=== PATIENT | male | born 2005 | race Caucasian/White ===

== ENCOUNTER 2024-09-29 17:15 | Emergency (ER) | payer SELFPAY ==
[2024-09-29 17:17] VITALS: BMI 23.7
[2024-09-29 18:16] VITALS: BP 123/80; PULSE 82; RESP 16; TEMP 37.2; O2SAT 99
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
[2024-09-29 23:22] VITALS: BP 148/93; PULSE 78; RESP 17; TEMP 36.9; O2SAT 97
== END 2024-09-30 00:15 | disposition home or self-care (01) ==
PROVIDERS: Emergency Provider Emergency Medicine
DX: S20.229A Contusion of unspecified back wall of thorax, initial encounter (principal); W18.2XXA Fall in (into) shower or empty bathtub, initial encounter; Y93.E1 Activity, personal bathing and showering
CPT/HCPCS: 72128; 72131; 99284

== ENCOUNTER 2024-12-20 15:20 | Emergency (ER) | payer MEDICAID, SELFPAY ==
[2024-12-20 15:21] VITALS: BMI 23.7
[2024-12-20 15:28] VITALS: BP 149/93; PULSE 78; RESP 19; TEMP 37.1; O2SAT 98
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
== END 2024-12-20 17:31 | disposition home or self-care (01) ==
PROVIDERS: Emergency Provider Emergency Medicine; PCP Family Medicine
DX: S13.4XXA Sprain of ligaments of cervical spine, initial encounter (principal); S39.012A Strain of muscle, fascia and tendon of lower back, initial encounter; S29.9XXA Unspecified injury of thorax, initial encounter; S09.90XA Unspecified injury of head, initial encounter; V89.9XXA Person injured in unspecified vehicle accident, initial encounter
CPT/HCPCS: 70450; 72072; 72100; 72125; 99283

== ENCOUNTER 2025-05-16 19:18 | Emergency (ER) | payer MEDICAID, SELFPAY ==
[2025-05-16 19:19] VITALS: BMI 26.4
[2025-05-16 19:29] VITALS: BP 149/98; PULSE 78; RESP 18; TEMP 37.4; O2SAT 98; BMI 26.1
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
[2025-05-16] MEDS: KETOROLAC INJ 60 MG/2 ML VIAL 30 MG IM (20:28)
[2025-05-16] MEDS: HYDROcodone/APAP 5/325 TABLET 1 TAB PO (20:29)
== END 2025-05-16 20:36 | disposition home or self-care (01) ==
PROVIDERS: Emergency Provider Emergency Medicine; PCP Family Medicine
DX: M50.20 Other cervical disc displacement, unspecified cervical region (principal); M62.838 Other muscle spasm
CPT/HCPCS: 96372; 99282; J1100; J1885; A9270